=== PATIENT | male | born 1945 | race Caucasian/White ===

== ENCOUNTER 2018-07-26 16:51 | Emergency (ER) | payer MEDICARE, OTHER ==
--- OUTSIDE RECORDS SUMMARY | 2018-07-26 17:28 | XMS REPORT ---
:1945 External Reference #:[id number] Author Organization [employer] Address [address] [place] [address] [place] [address] Phone [phone] Care Team Providers Name Role Phone Viviana Thibodeaux MD Primary Care Physician Unavailable Payers Type Date Identification Numbers Payment Provider Subscriber Medicare Primary Effective: Policy Number: Medicare Adrian Blackwell 2009 [id number] PayID: [id number] [address] [place] [address] Medigap Part B Policy Number: [id number] [employer] Adrian Blackwell Group Number: [id number] [address] PayID: [id number] [place] [address] Problems Description No Information Family History Date Family Member(s) Problem(s) Comments General Diabetes General Cancer Social History Type Date Description Comments Lives With Spouse Occupation Retired ETOH Use Currently consumes alcohol Smoking Patient has never smoked Exercise Type/Frequency Does not exercise Allergies, Adverse Reactions, Alerts Date Description Reaction Status Severity Comments 11/03/2013 NKDA active Medications Medication Date Status Form Strength Qnty SIG Indications Ordering Provider Ibuprofen 200 Active Tablets 200mg 400-600mg Unknown 00 every 6 hours as needed for pain. Irbesartan Active Tablets 300mg 1 by mouth Unknown 00 every day Lisinopril Hx Unknown - 07/20/20 18 Aleve Hx Unknown 07/20/20 18 Medications Administered in Office Medication Date Status Form Strength Qnty SIG Indications Ordering Provider Depomedrol 40MG 01/22/ Administered Injection Don Downey, MD Dexamethasone 10/02/ Administered Injection Don Chacon Sodium 2017 Jeri Downey, 1 MG Vital Signs Date Vital Result Comment 07/21/2018 Height 66 inches 5'6" BP Systolic 108 mmHg BP Diastolic 60 mmHg Respiratory Rate 16 /min Body Temperature 4.0 F 05/06/2018 Height 66 inches 5'6" Weight 165.00 lb Heart Rate 80 /min BP Systolic 124 mmHg BP Diastolic 80 mmHg Respiratory Rate 16 /min Body Temperature 97.8 F Pain Level 4 BMI (Body Mass Index) 26.6 kg/m2 03/18/2018 Height 66 inches 5'6" Weight 165.00 lb Heart Rate 72 /min BP Systolic 144 mmHg BP Diastolic 88 mmHg Pain Level 6 BMI (Body Mass Index) 26.6 kg/m2 03/06/2018 Height 67 inches 5'7" Weight 165.00 lb BP Systolic 122 mmHg BP Diastolic 71 mmHg Respiratory Rate 17 /min Pain Level 1 BMI (Body Mass Index) 25.8 kg/m2 01/22/2018 Height 67 inches 5'7" Weight 162.00 lb Heart Rate 76 /min Respiratory Rate 14 /min Body Temperature 97.7 F Pain Level 6 BMI (Body Mass Index) 25.4 kg/m2 01/13/2018 Height 67 inches 5'7" Weight 162.00 lb BP Systolic 123 mmHg BP Diastolic 76 mmHg Respiratory Rate 16 /min Pain Level 5 BMI (Body Mass Index) 25.4 kg/m2 10/02/2017 Height 67 inches 5'7" Weight 163.00 lb Heart Rate 82 /min Respiratory Rate 16 /min Body Temperature 98.1 F Pain Level 8 BMI (Body Mass Index) 25.5 kg/m2 Results Description No Information Procedures Date CPT Code Description Status 01/22/201855424 Inject/Drain Joint/Bursa Major W/O US Completed 10/02/201791564 Inject Tendon Sheath Or Ligament Aponeurosis Eg Plantar Completed Fascia Encounters Type Date Location Provider CPT E/M Dx Office Visit 05/06/2018 [facility] Don Downey, 33331 S46.011D 1:00p Of [facility] S46.111D M75.41 M19.011 Office Visit 03/18/2018 8:30a [facility] Don Chacon 31103 S46.011D Of [place] Downey MD S46.111D M75.41 M19.011 Office Visit 03/06/2018 10:00a [facility] Don Chacon 48077 S46.011D Of [place] Downey MD S46.111D M75.41 M19.011 Office Visit 01/22/2018 1:00p [facility] Don Chacon 47531 S46.011D Of [place] Downey MD S46.111D M75.41 M19.011 Office Visit 01/13/2018 2:00p [facility] Don Chacon 97005 S46.211A Of [place] Downey MD S46.011A M75.21 Office Visit 10/02/2017 1:15p [facility] Don Chacon 13239 S46.211A Of [place] Downey MD S46.011A M75.21 Office Visit 12/23/2012 1:45p [facility] Flynn M.D. 20854 840.9 Solo.MBradly Office Visit 01/01/2011 3:45p [facility] 74409 727.62 Noreen Lindsey M.D. Office Visit 12/21/2010 9:00a [facility] 68740 727.62 Noreen Lindsey M.D. Office Visit 03/02/2008 12:00p DO Not Use Yesi Sosa M.D., 70779 786.2 [employer] [place] FACP Office Visit 01/01/2008 3:30p DO Not Use Yesi Sosa M.D., 84647 785.6 [employer] [place] FACP Office Visit 08/25/2007 9:00a DO Not Use Yesi Sosa M.D., 56314 401.1 [employer] [place] FACP Office Visit 07/09/2007 10:30a DO Not Use Leyla Campos, N.P. 19187 720.2 [employer] [place] 401.1 724.2 Office Visit 05/30/2006 11:00a DO Not Use [employer] [place] Yesi Sosa 90454 729.5 Amy, FACP 272.4 Plan of Care Future Appointment(s):10/06/2018 1:45 pm - Don Downey MD at [facility].07/21/2018 - Don Downey, MDS46.011D Strain of musc/tend the rotator cuff of right shoulder, subsM75.41 Impingement syndrome of right yuidzjnaU61.011 Primary osteoarthritis, right jbfaplfsL81.211A Strain of musc/fasc/tend prt biceps, right arm, init
[2018-07-26] MEDS ORDERED: Ondansetron INJ* 2 MG/ML VIAL IV ONE (17:41)
[2018-07-26] MEDS ORDERED: Morphine INJ** 4 MG/ML 1 ML CARPUJECT IV ONE (17:41)
[2018-07-26] MEDS ORDERED: Morphine INJ* 2 MG/ML 1 ML SYRINGE (TWO MG - NEW SYRINGE VERSION) ONE (17:54)
[2018-07-26] MEDS ORDERED: Morphine INJ* 2 MG/ML 1 ML SYRINGE (TWO MG - NEW SYRINGE VERSION) IV ONE (18:36)
--- NOTE | 2018-07-26 19:42 | ED ---
Upper Extremity Pain - HPI Summary HPI Summary: 72-year-old male presents with left shoulder injury today. He states he was on a ladder and fell off onto his left shoulder. He denies any head injury. No loss conscious. No neck pain. No other injury besides his left shoulder. Was able to ambulate. He states he is not able to lower his shoulder below 90. He states his previous rotator cuff injury to the area. He states he only has a past medical history is high blood pressure. He states though this is good shoulders as he had issues with right shoulder. He is right-handed. No history of dislocations. He is not on blood thinners. He pain is 10 out of 10. He hasn't taking anything for his pain. - History of Current Complaint Chief Complaint: EDShoulderClavicleIjordanaj Stated Complaint: FALL Time Seen by Provider: 07/26/18 17:39 - Allergies/Home Medications Allergies/Adverse Reactions: Allergies Allergy/AdvReac Type Severity Reaction Status Date / Time No Known Allergies Allergy Verified 07/26/18 18:11 PMH/Surg Hx/FS Hx/Imm Hx Endocrine/Hematology History: Denies: Hx Diabetes Cardiovascular History: Reports: Hx Hypertension - ON MEDS Denies: Hx Pacemaker/ICD Sensory History: Reports: Hx Hearing Aid Psychiatric History: Denies: Hx Panic Disorder - Surgical History Surgery Procedure, Year, and Place: APPENDECTOMY, HEMMOROIDECTOMY, LYMPHNODE RT AXILLA(BENIGN), LT SHOULDER ROTATOR CUFF REPAIR Infectious Disease History: No Infectious Disease History: Denies: Traveled Outside the [place] in Last 30 Days - Family History Known Family History: Positive: Hypertension - Social History Alcohol Use: Daily Substance Use Type: Reports: None Smoking Status (MU): Former Smoker Review of Systems Negative: Fever Negative: Chest Pain Negative: Shortness Of Breath Positive: Myalgia - left shoulder pain All Other Systems Reviewed And Are Negative: Yes Physical Exam Triage Information Reviewed: Yes Vital Signs On Initial Exam: Initial Vitals Temp Pulse Resp BP Pulse Ox 98.2 F 81 18 160/92 98 07/26/18 16:52 07/26/18 16:52 07/26/18 16:52 07/26/18 16:52 07/26/18 16:52 Vital Signs Reviewed: Yes Appearance: Positive: Well-Appearing Skin: Positive: Warm, Dry Head/Face: Positive: Normal Head/Face Inspection Eyes: Positive: Normal, Conjunctiva Clear Neck: Positive: Other: - nontender neck Respiratory/Lung Sounds: Positive: Clear to Auscultation, Breath Sounds Present Cardiovascular: Positive: Normal, RRR Musculoskeletal: Positive: Limited @ - left shoulder, Other - deformity to left shoulder, good pulses, capillary refill<2 secs Neurological: Positive: Normal Psychiatric: Positive: Normal Procedures - Joint Reduction shoulder Joint Reduction Site: shoulder (L) Conscious Sedation: Yes Reduction Attempts: 1 Pre-Procedure NV Exam: Yes Post Joint Reduction Film: joint reduced Diagnostics - Vital Signs Vital Signs Temp Pulse Resp BP Pulse Ox 07/26/18 19:23 22 07/26/18 18:09 24 07/26/18 16:52 98.2 F 81 18 160/92 98 - Laboratory Lab Statement: Any lab studies that have been ordered have been reviewed, and results considered in the medical decision making process. - Radiology shoulder Xray Interpretation: Positive (See Comments) - dislocation Radiology Interpretation Completed By: ED Physician Course/Dx - Course Course Of Treatment: 72-year-old male presents with left shoulder injury today. He states he was on a ladder and fell off onto his left shoulder. He denies any head injury. No loss conscious. No neck pain. No other injury besides his left shoulder. Was able to ambulate. He states he is not able to lower his shoulder below 90. He states his previous rotator cuff injury to the area. He states he only has a past medical history is high blood pressure. He states though this is good shoulders as he had issues with right shoulder. He is right-handed. No history of dislocations. He is not on blood thinners. He pain is 10 out of 10. He hasn't taking anything for his pain. On exam has deformity to left shoulder. Neurovascular intact. X-ray shows shoulder dislocation. performed conscious sedation and shoulder was reduced. placed in sling. will have follow up with ortho. patient understand and agrees with plan. - Diagnoses Differential Diagnosis/HQI/PQRI: Positive: Fracture (Closed), Strain, Other - dislocation Provider Diagnoses: Dislocation of left shoulder joint Discharge - Sign-Out/Discharge Documenting (check all that apply): Patient Departure - Discharge Plan Condition: Good Disposition: HOME Patient Education Materials: Shoulder Dislocation (ED), Moderate Sedation (ED) Referrals: Viviana Thibodeaux MD [Primary Care Provider] - Don Downey MD [Medical Doctor] - Additional Instructions: Keep in sling Take Tylenol every 6 hours as needed for pain Ice/heat Follow up with ortho Return to ED if develop any new or worsening symptoms - Billing Disposition and Condition Condition: GOOD Disposition: Home
[2018-07-26] MEDS ORDERED: NS 0.9% 1000 ML* 1,000 ML IV SCH (19:45)
[2018-07-26] MEDS ORDERED: fentaNYL* 50 MCG/ML 2 ML VIAL (100 MCG VIAL) ONE (19:47)
[2018-07-26] MEDS ORDERED: Naloxone* 0.4 MG/ML 1 ML VIAL ONE (19:47)
[2018-07-26] MEDS ORDERED: Flumazenil* 0.1 MG/ML 5 ML MDV ONE (19:48)
[2018-07-26] MEDS ORDERED: Midazolam* 1 MG/ML 10 ML VIAL (10 MG) ONE (19:48)
[2018-07-26] MEDS ORDERED: fentaNYL* 50 MCG/ML 2 ML VIAL (100 MCG VIAL) IV SLOW PU ONE (20:07)
[2018-07-26] MEDS ORDERED: Midazolam* 1 MG/ML 10 ML VIAL (10 MG) IV ONE (20:10)
--- NOTE | 2018-07-26 20:40 | ED ---
Progress - Progress Note Progress Note: Patient presents with L shoulder dislocation. Re Raza asked for assistance with reduction and moderate sedation. Sedation paperwork and informed consent filled out. No prior hisotry of problems with anesthesia. No hx of COPD. Oropharynx is open. Lungs aer clear. Heart is regular. - EKG/XRAY/CT XRAY: Shoulder Xray Comments: Post reduction XR reveals successful reduction without fracture. Course/Dx - Course Course Of Treatment: Patient presents with L shoulder dislocation. Kellie Raza asked for assistance with reduction and moderate sedation. Sedation paperwork and informed consent filled out. No prior hisotry of problems with anesthesia. No hx of COPD. Oropharynx is open. Lungs aer clear. Heart is regular. Patient is given Versed 2.5mg Fentayl 50mg. Shoulder reduced. Post reduction XR reveals - Diagnoses Provider Diagnoses: Dislocation of left shoulder joint Discharge - Sign-Out/Discharge Documenting (check all that apply): Patient Departure - Discharge Plan Condition: Stable Disposition: HOME Patient Education Materials: Shoulder Dislocation (ED), Moderate Sedation (ED) Referrals: Don Downey MD [Medical Doctor] - Viviana Thibodeaux MD [Primary Care Provider] - Additional Instructions: Keep in sling Take Tylenol every 6 hours as needed for pain Ice/heat Follow up with ortho Return to ED if develop any new or worsening symptoms - Billing Disposition and Condition Condition: STABLE Disposition: Home - Attestation Statements Document Initiated by Scribe: Yes Documenting Scribe: Poonam Kirkland Provider For Whom Scribe is Documenting (Include Credential): Levi Torres MD Scribe Attestation: IPoonam scribed for Levi Torres MD on 07/26/18 at 2156. Scribe Documentation Reviewed: Yes Provider Attestation: The documentation as recorded by the samiraibePoonam accurately reflects the service I personally performed and the decisions made by me, Levi Torres MD
[2018-07-26 22:23] VITALS: BP 146/76
--- NOTE | 2018-07-27 07:54 | RAD ---
INDICATION: Dislocated left shoulder after a fall from a ladder COMPARISON: None. TECHNIQUE: 4 views of the left shoulder were obtained. FINDINGS: The left humeral head is dislocated inferiorly and anteriorly relative to the bony glenoid labrum. The bones are otherwise intact. IMPRESSION: DISLOCATED LEFT SHOULDER. R0
--- NOTE | 2018-07-27 08:29 | RAD ---
INDICATION: Status post reduction of fractured left shoulder COMPARISON: Same day left shoulder radiograph acquired at 1904 hours TECHNIQUE: 2 views of the left shoulder were obtained. FINDINGS: There has been interval reduction of the dislocated left shoulder. There is no radiographically apparent fracture in the AP or lateral view. Degenerative changes include early change and osteophyte formation at the acromioclavicular joint. IMPRESSION: INTERVAL REDUCTION OF DISLOCATED LEFT SHOULDER WITHOUT RADIOGRAPHICALLY APPARENT FRACTURE. R0
== END 2018-07-26 22:21 | disposition home or self-care (01) ==
LOC: ED 16:51
DX: S43.005A Unspecified dislocation of left shoulder joint, initial encounter (principal); W11.XXXA Fall on and from ladder, initial encounter; Y92.9 Unspecified place or not applicable; I10 Essential (primary) hypertension; Z87.891 Personal history of nicotine dependence
CPT/HCPCS: 96374; 96375; 99284; J2250; J2270; J2310; J2405; J3010

== ENCOUNTER 2018-10-24 06:24 | Day surgery (SDC) | payer MEDICARE, OTHER ==
[~2018-10-24 06:24] MED LIST: Buffered Lidocaine 0.9% SYRIN* 5 ML/SYR SYRINGE INTRADERM ONE
[2018-10-24] MEDS ORDERED: Morphine PCA ADULT* 5 MG/ML 30 ML ONE (06:43)
[2018-10-24] MEDS ORDERED: ceFAZolin 2 GM PREMIX in ORs 2 GM/50 ML BAG IVPB ONE (06:47)
[2018-10-24] MEDS ORDERED: fentaNYL* 50 MCG/ML 2 ML VIAL (100 MCG VIAL) ONE (07:23)
[2018-10-24] MEDS ORDERED: Midazolam* 1 MG/ML 2 ML VIAL (2 MG) ONE (07:23)
[2018-10-24] MEDS ORDERED: Propofol* 10 MG/ML 20 ML BTL ONE (07:23)
[2018-10-24] MEDS ORDERED: Lidocaine 2% PF * 5 ML VIAL ONE (07:23)
[2018-10-24] MEDS ORDERED: Rocuronium* 10 MG/ML VIAL ONE (07:23)
[2018-10-24] MEDS ORDERED: ROPIVACAINE 5 MG/ML 30 ML BTL (0.5%) ONE ×2 (07:26→07:30)
[2018-10-24] MEDS ORDERED: EPINEPHRINE 1 MG/ML 1 ML VIAL ONE ×2 (07:27→08:46)
[2018-10-24] MEDS ORDERED: Lidocaine 1%* 5 ML VIAL ONE (08:26)
[2018-10-24] MEDS ORDERED: Acetaminophen IV 1GM/100ML * 100 ML ONE (08:40)
[2018-10-24] MEDS ORDERED: EPHEDrine (Pressors)* 50 MG/ML VIAL ONE (09:36)
[2018-10-24] MEDS ORDERED: Dexamethasone IV* 4 MG/ML 1 ML (4 MG) ONE (09:50)
[2018-10-24] MEDS ORDERED: Naloxone* 0.4 MG/ML 1 ML VIAL IV PRN (10:01)
[2018-10-24] MEDS ORDERED: DiMENhydriNATE IV* 50 MG/ML VIAL IV PUSH PRN (10:01)
[2018-10-24] MEDS ORDERED: HYDROmorphone INJ1* 1 MG/ML SYRINGE IV PRN (10:01)
[2018-10-24] MEDS ORDERED: Ketorolac INJ* 30 MG/ML 1 ML VIAL ONE (10:40)
[2018-10-24] MEDS ORDERED: Ondansetron INJ* 2 MG/ML VIAL ONE (10:40)
[2018-10-24] MEDS ORDERED: Metoclopramide IV* 5 MG/ML 2 ML VIAL ONE (10:40)
[2018-10-24] MEDS ORDERED: HYDROmorphone INJ1* 1 MG/ML SYRINGE ONE (12:02)
[2018-10-24] MEDS ORDERED: oxyCODONE/Acetamin 5/325 MG* TAB ONE (14:33)
[2018-10-24 15:51] VITALS: BP 114/67
--- NOTE | 2018-10-27 09:58 | OP ---
DATE OF OPERATION: 10/24/18 - SDS DATE OF : 43 SURGEON: Don Downey MD WALLPAPERER HELPER: CASSY Maldonado. A physician assistant pastry chef was required for the length of procedure for assistance with positioning, instrumentation, and closure. ANESTHESIOLOGIST: Dr. Sonia Nation. ANESTHESIA: General anesthesia, regional interscalene block anesthesia. PRE-OPERATIVE DIAGNOSES: 1. Right shoulder rotator cuff tendon tear, supraspinatus, partial thickness. 2. Right shoulder subacromial impingement bursitis. 3. Right shoulder AC joint osteoarthritis. 4. Right shoulder long head biceps tendon tear. POST-OPERATIVE DIAGNOSES: 1. Right shoulder rotator cuff tendon tear, full thickness, supraspinatus, infraspinatus, acute on chronic. 2. Right shoulder subacromial impingement bursitis. 3. Right shoulder AC joint osteoarthritis. 4. Right shoulder long head biceps full thickness tear with retraction. OPERATIVE PROCEDURE: 1. Right shoulder arthroscopic rotator cuff tendon repair, double row, supraspinatus, infraspinatus, as well as jbzi-ps-irha stitches, for a U-shaped tear. 2. Modifier 22 was used for an unusually complex procedure being performed. Complex because of the number of anchors (4) plus [id number]-lffr repair of a retracted, chronic, U-shaped tear. 3. Right shoulder arthroscopic subacromial decompression. 4. Right shoulder arthroscopic distal clavicle resection. IV FLUIDS: See anesthesia note. ANTIBIOTICS: Ancef 2 g IV. SKIN TO SKIN TIME: 153 minutes. ARTHROSCOPIC FLUID UTILIZED: 19.5 bags each with 3 L for a total of 58.5 L of fluid. SPECIMEN: None. IMPLANTS: Two Mitek HEALIX 5.5 mm suture anchors, triple loaded. One [employer]k HEALIX 5.5 mm suture anchor, doubly loaded. One [employer] HEALIX knotless anchor 5.5 mm. Two Arthrex FiberWire #2 sutures. COMPLICATIONS: None. ESTIMATED BLOOD LOSS: Minimal. INDICATIONS FOR PROCEDURE: The patient is a 73-year-old man, who has had pain since mid 2016, treated by me since September 2017. The patient responded insufficiently to nonoperative management and presented for surgery. MRI appeared only to show a partial thickness tear of the undersurface of the supraspinatus, possibly interstitial. Radiologist did also read a high-grade partial tear of the long head of the biceps tendon, although I noted a Ayan deformity preoperatively, so I suspected that was a complete tear of the biceps long head tendon. I discussed risks and potential complications of surgery. DESCRIPTION OF PROCEDURE: Preoperatively, the patient signed a written consent in holding. Operative extremity was marked in preoperative holding. The patient underwent a regional interscalene nerve block by Dr. Sonia Nation of Anesthesia. The patient was taken back to the operating room and then placed supine on the operating room table, sedated and intubated. Turned to the lateral decubitus position with the right side up. Axillary roll placed. Bony prominences padded. Beanbag hardened. Longitudinal traction with the appropriate amount of forward flexion and abduction, 10 to 15 pounds. Right shoulder prepped and draped. Surgical time-out performed. A 30 cc infused by spinal needle into the glenohumeral joint. I established a posterior glenohumeral joint portal using a standard technique. Started my diagnostic arthroscopy. The patient had some grade 1 articular cartilage changes of the humeral head. The patient had some undersurface tearing of the anterior supraspinatus. I then noted that there was a clear full thickness tear about the posterior aspect of the supraspinatus and infraspinatus. I could see up easily into the subacromial space. I established an anterior glenohumeral joint portal under direct visualization. I used an arthroscopic shaver to remove some scar tissue in the rotator interval. No subscapularis tendon tear. No biceps long head tendon visible attached to the superior labrum or elsewhere. I established anterior and posterior subacromial portals. I established a lateral subacromial portal followed by a posterolateral portal under direct visualization. The patient had a clear full thickness tear in the rotator cuff. I debrided subacromial bursitis with an arthroscopic shaver. The patient at first appeared to simply have a split tear in the rotator cuff. I then noted the entirely exposed footprint on the humeral head, devoid of posterior supraspinatus and infraspinatus. It was clear that some of the posterior tissue was simply a fascial sleeve that was extending superiorly from the infraspinatus and was running alongside the lateral aspect of the humeral head and eventually inserting on deltoid. Some of this did appear to run to the rotator cuff muscle more medially, so I debrided it but cautiously as I was not to remove all of it if some of it was playing a functional role. Closer examination of the rotator ruff revealed this to be a U-shaped tear. There was some clear tendon that had retracted back medial to the glenoid. I used an arthroscopic shaver to debride scarring to this tendon from both inferior and superior to it. I used a rotator cuff grasper and was not able to retract it to the level of the bone, so it was clear that this could not be repaired to bone. It was clear that this would be some type of qeux-zf-zuow repair. I debrided the undersurface of the acromion with a VAPR. I then used an arthroscopic michael to debride the spurs from the undersurface of the acromion. I also debrided off the exposed footprint of the humeral head with the VAPR and then the arthroscopic michael to encourage healing. I placed plastic cannulas. I then through superolateral poke holes, placed my first anchor in the anterior aspect of the exposed footprint. This was a triple loaded 5.5 mm anchor. I used an Arthrex Scorpion suture passer as well as ideal suture passers from [employer] to place 3 horizontal mattress stitches in the supraspinatus, pulling it posterior and lateral to bone. I had in my mind that I would pull both leaflets to bone and then perform ftcb-it-jloj stitches as well. I liked how pulling the supraspinatus posterior and lateral to bone really closed up the large defect in the rotator cuff and should also be effective holding the humeral head down postoperatively. While I put this anchor in the medial aspect of the footprint and tried to grab a significant amount of tendon, I noted that not much tendon went lateral to this anchor, just a small amount of it did. I next debrided more of the posterior leaflet down to what I considered to be more christianson, better tendon tissue inferiorly. I placed a double-loaded suture anchor through a superolateral poke hole and then passed 2 horizontal mattress stitches using the Arthrex Scorpion and the Mitek ideal suture passer and I tied that tendon to bone. This advanced the posterior leaflet superiorly and anteriorly as well as laterally nicely. I believe this brought the nice tendon tissue to bone but did not remove all the lesser superior tissue that had been de facto acting as rotator cuff it seems. Next, I placed one additional suture anchor, triple loaded in the medial row just where the posterior and anterior leaflets were coming together. Two stitches were placed through the posterior leaflet, horizontal mattress and simple. One stitch was placed through both the anterior and posterior leaflet. Rotator cuff tendon came nicely down to bone with this stitch as well, for this anchor. I should correct that many of these stitches were simple rather than horizontal mattress, to bring a larger volume of tendon in close contact to bone. I really like to have these simple stitches worked as opposed to the horizontal mattress with this particular tear configuration. I then to supplement this repair given its large size of the tear, used four sutures from the medial row and placed them in a knotless suture anchor, more laterally in the lateral aspect of the rotator cuff tendon footprint. The anterior and posterior leaflets had been brought nicely together by my repair more laterally, I supplemented this repair with two xcpt-la-jenx stitches , simple, placed with FiberWire #2 suture, with the stitches being placed with the ideal suture passer from [employer]. I next proceeded forward with the distal clavicle resection. I debrided synovitic tissue with the VAPR and then used an arthroscopic michael to remove at least 8 mm of the distal end of the clavicle. Removed instruments and fluid from the subacromial space after I had confirmed visually and by probing the excellent stability of my repair. I closed skin incisions with lkckxg-is-cbair in 12 stitches using nylon 3-0 suture. Xeroform, 4x4's, ABD's, foam tape. Sling and abduction pillow placed. The patient was awakened and taken to the PACU. DISPOSITION: A sling and abduction pillow at all times. Physical therapy to start next week. Wound care instructions provided. Percocet as needed for pain control. The patient will follow up with me in 10 to 14 days postoperatively. [id number]/[facility] #: [id number] YAMILE
== END 2018-10-24 15:55 | disposition home or self-care (01) ==
LOC: OR 06:24
PROVIDERS: ATTEND Orthopaedic Surgery
DX: M75.111 Incomplete rotator cuff tear or rupture of right shoulder, not specified as traumatic (principal); M19.011 Primary osteoarthritis, right shoulder; M75.41 Impingement syndrome of right shoulder; I10 Essential (primary) hypertension; Z87.891 Personal history of nicotine dependence; E78.5 Hyperlipidemia, unspecified; G89.18 Other acute postprocedural pain
CPT/HCPCS: A9270-GY; J0690; J1100; J1170; J1885; J2250; J2270; J2405; J2704; J2765; J2795; J3010